=== PATIENT | female | born 1960 | race African-American/Black ===

== ENCOUNTER 2016-08-15 16:05 | Emergency (ER) | payer OTHER ==
[2016-08-15 16:47] LABS: BASOPHIL 0.2 % (0-2); EOSINOPHIL 0.1 % (0-5); HCT 33.8 % (37.0-47.0); LYMPHOCYTE 9.9 % (15-48); MCH 26.7 pg (25.0-31.0); MCHC 29.6 g/dL (32.0-36.0); MCV 90.1 fL (78.0-100.0); MONOCYTE 5.8 % (0-12); MPV 10.4 fL (6.0-9.5); PLT 532 K/uL (150-400); RBC 3.75 M/uL (4.20-5.40); RDW 20.1 % (11.5-14.0); WBC 9.9 K/uL (4.0-10.5)
[2016-08-15 16:50] LABS: INR 1.54 (0.9-1.2)
[2016-08-15 16:51] LABS: PTT 43.5 SECONDS (23.2-31.4)
[2016-08-15 16:53] LABS: LACTIC ACID 4.6 mmol/L (0.5-2.2)
[2016-08-15 16:54] LABS: ALBUMIN 2.9 g/dL (3.5-5.0); BILIRUBIN - TOTAL 2.1 mg/dL (0.1-1.0); CREATININE 2.6 mg/dL (0.5-1.0); GLOBULIN (CALCULATION) 4.4 g/dL (2.2-4.2); TOTAL PROTEIN 7.3 g/dL (6.4-8.3)
[2016-08-15 17:04] LABS: BILIRUBIN 1+ mg/dL (NEGATIVE); BLOOD NEGATIVE Ery/uL (NEGATIVE); CLARITY CLEAR (CLEAR); COLOR YELLOW (YELLOW); GLUCOSE (U) NORMAL (NORMAL); KETONE (U) NEGATIVE (NEGATIVE); LEUKOCYTES NEGATIVE Leu/uL (NEGATIVE); NITRITE NEGATIVE (NEGATIVE); PROTEIN TRACE (LOW) mg/dL (NEGATIVE); SPECIFIC GRAVITY 1.015 (1.001-1.030)
[2016-08-15 17:07] LABS: BACTERIA TRACE; URINARY RBC RARE; URINARY WBC RARE
== END 2016-08-15 21:10 | disposition other institution (70) ==
LOC: FER 16:05
PROVIDERS: Emergency Medicine
DX: N17.9 Acute kidney failure, unspecified (principal); C50.919 Malignant neoplasm of unspecified site of unspecified female breast; C78.7 Secondary malignant neoplasm of liver and intrahepatic bile duct; C79.51 Secondary malignant neoplasm of bone; G93.9 Disorder of brain, unspecified; I10 Essential (primary) hypertension; E78.5 Hyperlipidemia, unspecified; Z79.899 Other long term (current) drug therapy
CPT/HCPCS: 36415; 70450; 71010; 80053; 81001; 82140; 83605; 83690; 84484; 85025; 85610; 85730; 87040; 87088; 87804; 87899; 93005; J2543